=== PATIENT | male | born 1975 | race Caucasian/White ===

== ENCOUNTER 2021-04-22 13:28 | Inpatient (IN) | payer BC, OTHER ==
[~2021-04-22] VITALS: Ht 170.2 cm; Wt 98.2 kg
--- NOTE | 2021-04-22 13:49 | NUR ---
Dr Lehman evaluated pt at triage, gave verbal order for one view chest xray
[2021-04-22] MEDS ORDERED: ketorolac trometh. 30mg/ml inj. IV ONE (15:15)
[2021-04-22] MEDS ORDERED: orphenadrine citrate 60mg/2ml inj. IM ONE (15:15)
[2021-04-22] MEDS ORDERED: iohexol 300mg/ml 100ml inj. ONE (15:20)
[2021-04-22] MEDS: K, MAG and/or Phos replacement - Verify level? MC SCH (16:35)
[2021-04-22] MEDS ORDERED: magnesium hydroxide 30ml (MOM) UD suspension PO PRN (16:35)
[2021-04-22] MEDS ORDERED: morphine 2 MG/ML inj. syringe IV PRN (16:35)
[2021-04-22] MEDS ORDERED: ipratropium 0.5 MG/2.5ML nebule NEB PRN (16:35)
[2021-04-22] MEDS ORDERED: LIDOcaine 2% 10ml TOPICAL JELLY (Urojet) TP ONE (16:35)
[2021-04-22] MEDS ORDERED: acetaminophen 325mg tablet PO PRN ×2 (16:35)
[2021-04-22] MEDS ORDERED: potassium Cl 20 mEq SR tablet PO PRN ×2 (16:35)
[2021-04-22] MEDS ORDERED: ondansetron/PF 4mg/2ml inj IV PRN (16:35)
[2021-04-22] MEDS ORDERED: NO HOME MEDS (16:38)
--- NOTE | 2021-04-22 16:56 | NUR ---
Pt transferred to room 15. Hospitalist has spoken to pt. Labs are currently being drawn. Pt's vitals stable. Pt A&Ox4.
[2021-04-22] MEDS: normal saline 1000ml 1,000 ML IV SCH (17:00)
[2021-04-22 17:04] LABS: BASOPHILS # (AUTO) 0.1 X10'3 (0-0.2); BASOPHILS % (AUTO) 0.4 % (0-1); EOSINOPHILS % (AUTO) 0.1 % (0-6); HEMATOCRIT 46.4 % (42.0-52.0); HEMOGLOBIN 15.5 g/dl (14.0-17.9); LYMPHOCYTES # (AUTO) 0.9 X10'3 (1.1-4.8); LYMPHOCYTES % (AUTO) 5.9 % (21-51); MEAN CORPUSCULAR HEMOGLOBIN 30.6 PG (27.0-31.0); MEAN CORPUSCULAR HGB CONC 33.5 g/dL (33.0-36.5); MEAN CORPUSCULAR VOLUME 91.5 FL (78-98); MEAN PLATELET VOLUME 8.5 FL (7.4-10.4); MONOCYTES # (AUTO) 1.5 X10'3 (0-0.9); MONOCYTES % (AUTO) 10.6 % (2-12); PLATELET COUNT 209 X10'3 (140-440); RED BLOOD COUNT 5.07 X10'6 (4.70-6.10); RED CELL DISTRIBUTION WIDTH 13.5 % (11.5-14.5); WHITE BLOOD COUNT 14.5 X10'3 (4.5-11.0)
[2021-04-22 17:18] LABS: PARTIAL THROMBOPLASTIN TIME 25 SECONDS (22-32)
[2021-04-22 17:20] LABS: ALANINE AMINOTRANSFERASE 52 U/L (12-78); ALBUMIN 3.8 G/DL (3.4-5.0); ALBUMIN/GLOBULIN RATIO 1.1 (1.1-1.5); ALKALINE PHOSPHATASE 83 IU/L (46-116); ANION GAP 11 (8-16); ASPARTATE AMINO TRANSFERASE 66 U/L (10-37); BILIRUBIN,TOTAL 0.7 MG/DL (0.1-1.0); BLOOD UREA NITROGEN 9 MG/DL (7-18); BUN/CREATININE RATIO 10.3 (5.4-32.0); CALCIUM 8.2 MG/DL (8.5-10.1); CHLORIDE 100 MMOL/L (99-107); CREATININE 0.87 MG/DL (0.60-1.10); GLUCOSE 93 MG/DL (70-104); SODIUM 136 MMOL/L (135-145); TOTAL CARBON DIOXIDE 25.2 MMOL/L (24-32); TOTAL PROTEIN 7.2 G/DL (6.4-8.2); eGFR > 90 ML/MIN
--- NOTE | 2021-04-22 17:22 | NUR ---
Pt refusing a urinary sloan at this time.
--- NOTE | 2021-04-22 19:03 | NUR ---
PATIENT PERFORMED ORAL CARE PER SELF AND TOOK OUT UPPER DENTURE FOR THE NIGHT. RESTING ON GURNEY WITHOUT NEEDS. PATIENT REPORTS PAIN TO LEFT SIDE AND RIB AREA, BUT DOES NOT WANT PAIN MEDS AT THIS TIME. RESP UNLABORED. CALL LIGHT IN REACH.
[2021-04-22] MEDS: docusate sod 100mg capsule PO SCH (19:38)
[2021-04-22] MEDS: morphine 4 MG/ML inj SYRINge IV PRN (19:39)
[2021-04-22] MEDS: bacitracin 15gm ointment TP SCH (21:00)
[2021-04-23] VITALS (9 sets, daily range): BP systolic 122–157; BP diastolic 72–95
[2021-04-23] MEDS: morphine 4 MG/ML inj SYRINge IV PRN ×5 (03:19→20:44)
[2021-04-23 05:04] LABS: BASOPHILS % (AUTO) 0.5 % (0-1); EOSINOPHILS # (AUTO) 0.1 X10'3 (0-0.9); EOSINOPHILS % (AUTO) 1.1 % (0-6); HEMOGLOBIN 14.3 g/dl (14.0-17.9); LYMPHOCYTES # (AUTO) 0.8 X10'3 (1.1-4.8); LYMPHOCYTES % (AUTO) 13.8 % (21-51); MEAN CORPUSCULAR HEMOGLOBIN 31.3 PG (27.0-31.0); MEAN CORPUSCULAR VOLUME 91.9 FL (78-98); MEAN PLATELET VOLUME 8.7 FL (7.4-10.4); MONOCYTES # (AUTO) 0.8 X10'3 (0-0.9); MONOCYTES % (AUTO) 13.4 % (2-12); NEUTROPHILS # (AUTO) 4.2 X10'3 (1.8-7.7); NEUTROPHILS % (AUTO) 71.2 % (42-75); PLATELET COUNT 174 X10'3 (140-440); RED BLOOD COUNT 4.56 X10'6 (4.70-6.10); RED CELL DISTRIBUTION WIDTH 13.5 % (11.5-14.5); WHITE BLOOD COUNT 5.9 X10'3 (4.5-11.0)
[2021-04-23 05:07] LABS: ALANINE AMINOTRANSFERASE 36 U/L (12-78); ALKALINE PHOSPHATASE 70 IU/L (46-116); ANION GAP 9 (8-16); ASPARTATE AMINO TRANSFERASE 49 U/L (10-37); BILIRUBIN,TOTAL 0.7 MG/DL (0.1-1.0); BLOOD UREA NITROGEN 9 MG/DL (7-18); BUN/CREATININE RATIO 12.7 (5.4-32.0); CALCIUM 7.8 MG/DL (8.5-10.1); CHLORIDE 106 MMOL/L (99-107); CREATININE 0.71 MG/DL (0.60-1.10); GLUCOSE 96 MG/DL (70-104); POTASSIUM 3.6 MMOL/L (3.5-5.1); SODIUM 140 MMOL/L (135-145); TOTAL CARBON DIOXIDE 24.8 MMOL/L (24-32); TOTAL PROTEIN 6.1 G/DL (6.4-8.2); eGFR > 90 ML/MIN
[2021-04-23] MEDS: normal saline 1000ml 1,000 ML IV SCH ×2 (06:43→20:45)
--- NOTE | 2021-04-23 06:59 | NUR ---
patient report received from Shahnaz QUACH; all questions answered.
[2021-04-23] MEDS: bacitracin 15gm ointment TP SCH ×3 (08:00→21:00)
[2021-04-23] MEDS: docusate sod 100mg capsule PO SCH ×2 (08:00→20:00)
[2021-04-23] MEDS: K, MAG and/or Phos replacement - Verify level? MC SCH (08:00)
--- NOTE | 2021-04-23 15:27 | NUR ---
Patient report given to Marsha QUACH. Patient transferred to PCU Rm 3018B via wheelchair where Tayla QUACH will now be his nurse.
[2021-04-23] MEDS ORDERED: nicotine 21mg patch - 24 hr TD ONE (18:00)
--- NOTE | 2021-04-23 18:18 | NUR ---
Problems reprioritized. Patient report given, questions answered & plan of care reviewed with PHILOMENA Hilario.
[2021-04-24 01:46] VITALS: BP 149/73
[2021-04-24] MEDS: morphine 4 MG/ML inj SYRINge IV PRN (01:46)
--- NOTE | 2021-04-24 06:15 | NUR ---
Patient in room PCU 3018. I have received report from PHILOMENA Hilario and had the opportunity to ask questions and assume patient care.
--- NOTE | 2021-04-24 06:20 | NUR ---
Problems reprioritized. Patient report given, questions answered & plan of care reviewed with DAYLIN RN.
[2021-04-24 06:30] VITALS: BP 164/99
[2021-04-24 07:15] LABS: BASOPHILS % (AUTO) 0.4 % (0-1); EOSINOPHILS # (AUTO) 0.1 X10'3 (0-0.9); EOSINOPHILS % (AUTO) 1.3 % (0-6); HEMATOCRIT 43.6 % (42.0-52.0); LYMPHOCYTES # (AUTO) 0.9 X10'3 (1.1-4.8); LYMPHOCYTES % (AUTO) 11.4 % (21-51); MEAN CORPUSCULAR HEMOGLOBIN 31.2 PG (27.0-31.0); MEAN CORPUSCULAR HGB CONC 34.5 g/dL (33.0-36.5); MEAN CORPUSCULAR VOLUME 90.6 FL (78-98); MEAN PLATELET VOLUME 8.8 FL (7.4-10.4); MONOCYTES % (AUTO) 11.6 % (2-12); NEUTROPHILS # (AUTO) 6.2 X10'3 (1.8-7.7); NEUTROPHILS % (AUTO) 75.3 % (42-75); PLATELET COUNT 180 X10'3 (140-440); RED BLOOD COUNT 4.81 X10'6 (4.70-6.10); RED CELL DISTRIBUTION WIDTH 12.9 % (11.5-14.5); WHITE BLOOD COUNT 8.3 X10'3 (4.5-11.0)
[2021-04-24 07:23] LABS: ALANINE AMINOTRANSFERASE 41 U/L (12-78); ALBUMIN/GLOBULIN RATIO 0.9 (1.1-1.5); ALKALINE PHOSPHATASE 75 IU/L (46-116); ANION GAP 12 (8-16); ASPARTATE AMINO TRANSFERASE 44 U/L (10-37); BILIRUBIN,TOTAL 0.8 MG/DL (0.1-1.0); BLOOD UREA NITROGEN 6 MG/DL (7-18); BUN/CREATININE RATIO 8.6 (5.4-32.0); CALCIUM 7.9 MG/DL (8.5-10.1); CHLORIDE 101 MMOL/L (99-107); GLUCOSE 91 MG/DL (70-104); POTASSIUM 3.6 MMOL/L (3.5-5.1); SODIUM 136 MMOL/L (135-145); TOTAL CARBON DIOXIDE 23.5 MMOL/L (24-32); TOTAL PROTEIN 6.5 G/DL (6.4-8.2); eGFR > 90 ML/MIN
[2021-04-24] MEDS ORDERED: nicotine 21mg patch - 24 hr TD SCH (08:00)
[2021-04-24] MEDS: bacitracin 15gm ointment TP SCH ×2 (08:00→09:25)
[2021-04-24] MEDS: K, MAG and/or Phos replacement - Verify level? MC SCH (08:00)
[2021-04-24] MEDS ORDERED: HYDROcodone/acetaminophen 10/325mg tab PO PRN (08:25)
[2021-04-24] MEDS ORDERED: HYDROcodone/acetaminophen 5mg/325mg tablet PO PRN (08:25)
[2021-04-24] MEDS: normal saline 1000ml 1,000 ML IV SCH (08:35)
[2021-04-24] MEDS: docusate sod 100mg capsule PO SCH (09:35)
[2021-04-24 11:00] VITALS: BP 156/95
[2021-04-24] MEDS ORDERED: HYDR-3964 PO (11:06)
[2021-04-24] MEDS ORDERED: NICO-687 TD (11:06)
[2021-04-24] MEDS ORDERED: BACI28.42 TP (11:06)
--- NOTE | 2021-04-24 13:55 | NUR ---
DC inst provided to pt. IV x2 DC'd, tips intact. All belongings sent w/pt. WC to vehicle.
== END 2021-04-24 14:00 | disposition home or self-care (01) | DRG 184 ==
LOC: ER 13:29 → ED HOLD 16:35 → ICU 2S 04-23 07:17 → PCU 3S 04-23 15:20
PROVIDERS: ADMIT Surgery Surgical Critical Care; ATTEND Surgery Surgical Critical Care
PROC: BW251ZZ Computerized Tomography (CT Scan) of Chest, Abdomen and Pelvis using Low Osmolar Contrast (ICD-10-PCS; principal; 2021-04-22)
DX: S22.42XA Multiple fractures of ribs, left side, initial encounter for closed fracture (principal); S36.039A Unspecified laceration of spleen, initial encounter; D72.823 Leukemoid reaction; F12.90 Cannabis use, unspecified, uncomplicated; G47.9 Sleep disorder, unspecified; M54.5 Low back pain; M25.512 Pain in left shoulder; S70.212A Abrasion, left hip, initial encounter; M79.18 Myalgia, other site; F17.210 Nicotine dependence, cigarettes, uncomplicated; S70.02XA Contusion of left hip, initial encounter; V49.9XXA Car occupant (driver) (passenger) injured in unspecified traffic accident, initial encounter; Y92.410 Unspecified street and highway as the place of occurrence of the external cause; Y93.I9 Activity, other involving external motion; Y99.8 Other external cause status; Z88.0 Allergy status to penicillin
CPT/HCPCS: 36415; 71045; 71250; 72125; 74176; 80053; 85025; 85730; 93005; 94760; 96372; 96374; 99285; G0378; J1885; J2270; J2360; J7030; Q9967